=== PATIENT | female | born 1965 | race Caucasian/White ===

== ENCOUNTER 2020-11-04 14:26 | Emergency (ER) | payer SELFPAY ==
[2020-11-04] MEDS ORDERED: fentaNYL 50 MCG/ML SDV IVPUSH ONE ×2 (14:27→18:17)
[2020-11-04] MEDS ORDERED: Lactated Ringers 1,000 ML IV ONE (14:27)
[2020-11-04] MEDS ORDERED: Ondansetron 4 MG/2 ML SDV IV ONE (14:27)
[2020-11-04 15:13] LABS: CHLORIDE,CL 102 mmol/L (98-107); SODIUM,NA 136 mmol/L (136-145)
[2020-11-04 15:14] LABS: ANION GAP 17.4 meq/L (7-15)
--- NOTE | 2020-11-04 15:16 | EDM.PDOC ---
ED HPI GENERAL MEDICAL PROBLEM - General Chief Complaint: Abdominal Pain Stated Complaint: abdominal pain Time Seen by Provider: 11/04/20 14:32 Source of Information: Reports: Patient History Limitations: Reports: No Limitations - History of Present Illness INITIAL COMMENTS - FREE TEXT/NARRATIVE: Patient comes in for lower abdominal/low back pain. Has tried muscle relaxant but no help. Started in right lower right quadrant anteriorly yesterday morning. Slowly started to include right low back/side. Today is now bilateral lower abdominal quadrants and bilateral low back. Nothing makes it specifically better or worse. Cannot get comfortable. No history of similar pain in past. No history of injury. Feels a little tingly both thighs but denies bowel/bladder dysfunction or lower extremity weakness. No UTI complaints. Mild loose stools since yesterday/non-bloody. Some nausea/decreased appetite. No emesis. Denies HEENT/Resp/CV changes. No other reported changes. Abdomen Pain Score (Numeric/FACES): 10 - Related Data Allergies Allergy/AdvReac Type Severity Reaction Status Date / Time amoxicillin Allergy Anaphylactic Verified 11/04/20 15:27 Shock morphine Allergy Hives Verified 11/04/20 18:10 Penicillins Allergy Anaphylactic Verified 11/04/20 15:27 Shock Home Meds: Home Meds . [No Known Home Meds] 11/04/20 [History] Past Medical History Musculoskeletal History: Reports: Other (See Below) (Cyst removed from lumbar spine area.) Social & Family History - Tobacco Use Tobacco Use Status *Q: Current Every Day Tobacco User Packs/Tins Daily: 1 Smoking Cessation Information Provided To Patient: Patient Refused - Caffeine Use Caffeine Use: Reports: Coffee (1 pot a day) - Alcohol Use Alcohol Use History: Yes Total Drinks Per Week Comment: Has about 6 drinks a week Alcohol Use Frequency: Socially - Recreational Drug Use Recreational Drug Use: No Drug Use in Last 12 Months: No ED ROS GENERAL - Review of Systems Review Of Systems: Comprehensive ROS is negative, except as noted in HPI. ED EXAM, GENERAL - Physical Exam Exam: See Below Exam Limited By: No Limitations General Appearance: Alert, Moderate Distress Eye Exam: Bilateral Eye: EOMI, PERRL Ears: Hearing Grossly Normal Nose: No: Nasal Deformity, Nasal Swelling, Nasal Drainage Throat/Mouth: Normal Lips, Normal Voice, No Airway Compromise Head: Atraumatic, Normocephalic Neck: Supple, Non-Tender, Full Range of Motion Respiratory/Chest: No Respiratory Distress, Lungs Clear, Normal Breath Sounds, No Accessory Muscle Use, Chest Non-Tender Cardiovascular: Regular Rate, Rhythm, No Murmur GI/Abdominal: Rebound (RLQ), Tender (all 4 quadrants/worse in RLQ), Abnormal Bowel Sounds (diminished). No: Guarding, Rigid, Hernia, Mass (Female) Exam: No: Cervix Motion Tenderness, Enlarged Uterus, Vaginal Bleeding, Vaginal Discharge Rectal (Female) Exam: Deferred Back Exam: Other (mild tenderness with percussion right low back. Scar over lumbar spine from previous spinal surgery. ) Extremities: Non-Tender, No Pedal Edema, Normal Capillary Refill Neurological: Alert, Oriented, Other (Can't stand straight up due to discomfort. No obvious focal weakness. DTR diminished left patella vs right. ) Psychiatric: Normal Affect, Normal Mood Skin Exam: Warm, Dry, Intact, Normal Color Course - Vital Signs Last Recorded V/S: Last Vital Signs Temp 36.7 C 11/04/20 14:30 Pulse 66 11/04/20 15:15 Resp 18 11/04/20 15:15 BP 122/75 11/04/20 15:15 Pulse Ox 99 11/04/20 15:15 - Orders/Labs/Meds Orders: Active Orders 24 hr Category Date Time Status Peripheral IV Care [RC] . DIRECTED Care 11/04/20 14:27 Active Abdomen Pelvis wo Cont [CT] Stat Exams 11/04/20 15:21 Taken Sodium Chloride 0.9% [Saline Flush] Med 11/04/20 14:27 Active 10 ml FLUSH ASDIRECTED PRN Peripheral IV Insertion Adult [OM.PC] Stat Oth 11/04/20 14:26 Ordered Medication Orders Sodium Chloride (Sodium Chloride 0.9% 10 Ml Syringe) 10 ml FLUSH ASDIRECTED PRN PRN Reason: Keep Vein Open Last Admin: 11/04/20 17:11 Dose: 10 ml Documented by: ANASTASIA Labs: Laboratory Tests 11/04/20 11/04/20 11/04/20 Range/Units 14:52 14:52 14:52 WBC 10.5 H (4.0-10.2) K/uL RBC 4.59 (3.77-5.09) M/uL Hgb 14.4 (11.7-15.5) g/dL Hct 41.9 (34.0-46.0) % MCV 91.3 (84.0-98.0) fL MCH 31.4 (28.2-33.3) pg MCHC 34.4 (31.7-36.0) g/dL RDW 12.7 (11.2-14.1) % Plt Count 263 (150-350) K/uL Neut % (Auto) 73.7 (45.0-80.0) % Lymph % (Auto) 16.6 (10.0-50.0) % [place] % (Auto) 6.8 (2.0-14.0) % Eos % (Auto) 2.4 (0.0-5.0) % Baso % (Auto) 0.5 (0.0-2.0) % Neut # (Auto) 7.72 H (1.40-7.00) K/uL Lymph # (Auto) 1.74 (0.50-3.50) K/uL [place] # (Auto) 0.71 (0.00-1.00) K/uL Eos # (Auto) 0.25 (0.00-0.50) K/uL Baso # (Auto) 0.05 (0.00-0.20) K/uL Sodium 136 (136-145) mmol/L Potassium 4.0 (3.5-5.1) mmol/L Chloride 102 (98-107) mmol/L Carbon Dioxide 20.6 L (21.0-32.0) mmol/L Anion Gap 17.4 H (7-15) meq/L BUN 12 (7-18) mg/dL Creatinine 0.72 (0.51-1.17) mg/dL Est Cr Clr Drug Dosing TNP Estimated GFR (MDRD) > 60 mL/min Glucose 92 (70-99) mg/dL Lactic Acid 1.3 (0.4-2.0) mmol/L Calcium 9.0 (8.5-10.1) mg/dL Total Bilirubin 0.4 (0.2-1.0) mg/dL AST 46 H (15-37) U/L ALT 71 (12-78) U/L Alkaline Phosphatase 101 (46-116) IU/L C-Reactive Protein < 0.2 (<=0.9) mg/dL Total Protein 7.4 (6.4-8.2) g/dL Albumin 3.9 (3.4-5.0) g/dL Lipase 380 (73-393) U/L Specimen Type Urine Color Urine Appearance Urine pH (5.0-9.0) Ur Specific [place] (1.005-1.030) Urine Protein (NEGATIVE) mg/dL Urine Glucose (UA) (NEGATIVE) mg/dL Urine Ketones (NEGATIVE) mg/dL Urine Occult Blood (NEGATIVE) Urine Nitrite (NEGATIVE) Urine Bilirubin (NEGATIVE) Urine Urobilinogen (0.2-1.0) E.U./dL Ur Leukocyte Esterase (NEGATIVE) Urine HCG, Qual Urine Opiates Screen (NEGATIVE) Ur Buprenorphine Scrn (NEGATIVE) Ur Oxycodone Screen (NEGATIVE) Ur EDDP (Meth Metab) (NEGATIVE) Ur Barbiturates Screen (NEGATIVE) Ur Tricyclics Screen (NEGATIVE) Ur Amphetamine Screen (NEGATIVE) U Methamphetamines Scrn (NEGATIVE) Urine MDMA Screen (NEGATIVE) U Benzodiazepines Scrn (NEGATIVE) U Cocaine Metab Screen (NEGATIVE) U Marijuana (THC) Screen (NEGATIVE) 11/04/20 11/04/20 11/04/20 Range/Units 16:03 16:03 16:34 WBC (4.0-10.2) K/uL RBC (3.77-5.09) M/uL Hgb (11.7-15.5) g/dL Hct (34.0-46.0) % MCV (84.0-98.0) fL MCH (28.2-33.3) pg MCHC (31.7-36.0) g/dL RDW (11.2-14.1) % Plt Count (150-350) K/uL Neut % (Auto) (45.0-80.0) % Lymph % (Auto) (10.0-50.0) % [place] % (Auto) (2.0-14.0) % Eos % (Auto) (0.0-5.0) % Baso % (Auto) (0.0-2.0) % Neut # (Auto) (1.40-7.00) K/uL Lymph # (Auto) (0.50-3.50) K/uL [place] # (Auto) (0.00-1.00) K/uL Eos # (Auto) (0.00-0.50) K/uL Baso # (Auto) (0.00-0.20) K/uL Sodium (136-145) mmol/L Potassium (3.5-5.1) mmol/L Chloride (98-107) mmol/L Carbon Dioxide (21.0-32.0) mmol/L Anion Gap (7-15) meq/L BUN (7-18) mg/dL Creatinine (0.51-1.17) mg/dL Est Cr Clr Drug Dosing Estimated GFR (MDRD) mL/min Glucose (70-99) mg/dL Lactic Acid (0.4-2.0) mmol/L Calcium (8.5-10.1) mg/dL Total Bilirubin (0.2-1.0) mg/dL AST (15-37) U/L ALT (12-78) U/L Alkaline Phosphatase (46-116) IU/L C-Reactive Protein (<=0.9) mg/dL Total Protein (6.4-8.2) g/dL Albumin (3.4-5.0) g/dL Lipase (73-393) U/L Specimen Type Urinvoid Urine Color Other Urine Appearance Clear Urine pH 6.0 (5.0-9.0) Ur Specific [place] <= 1.005 (1.005-1.030) Urine Protein Negative (NEGATIVE) mg/dL Urine Glucose (UA) Negative (NEGATIVE) mg/dL Urine Ketones Negative (NEGATIVE) mg/dL Urine Occult Blood Negative (NEGATIVE) Urine Nitrite Negative (NEGATIVE) Urine Bilirubin Negative (NEGATIVE) Urine Urobilinogen 0.2 (0.2-1.0) E.U./dL Ur Leukocyte Esterase Negative (NEGATIVE) Urine HCG, Qual Negative Urine Opiates Screen Negative (NEGATIVE) Ur Buprenorphine Scrn Negative (NEGATIVE) Ur Oxycodone Screen Negative (NEGATIVE) Ur EDDP (Meth Metab) Negative (NEGATIVE) Ur Barbiturates Screen Negative (NEGATIVE) Ur Tricyclics Screen Negative (NEGATIVE) Ur Amphetamine Screen Negative (NEGATIVE) U Methamphetamines Scrn Negative (NEGATIVE) Urine MDMA Screen Negative (NEGATIVE) U Benzodiazepines Scrn Negative (NEGATIVE) U Cocaine Metab Screen Negative (NEGATIVE) U Marijuana (THC) Screen Negative (NEGATIVE) Meds: Medications Generic Name Dose Route Start Last Admin Trade Name Alex PRN Reason Stop Dose Admin Sodium Chloride 10 ml 11/04/20 14:27 11/04/20 17:11 Sodium Chloride 0.9% 10 Ml Syringe FLUSH 10 ml ASDIRECTED PRN Administration Keep Vein Open Discontinued Medications Generic Name Dose Route Start Last Admin Trade Name Alex PRN Reason Stop Dose Admin Fentanyl 50 mcg 11/04/20 14:27 11/04/20 14:53 Fentanyl 50 Mcg/Ml Sdv IVPUSH 11/04/20 14:28 50 mcg ONETIME ONE Administration Fentanyl 100 mcg 11/04/20 17:02 11/04/20 17:11 Fentanyl 100 Mcg/2 Ml Sdv IVPUSH 11/04/20 17:03 100 mcg ONETIME ONE Administration Fentanyl 50 mcg 11/04/20 18:17 Fentanyl 50 Mcg/Ml Sdv IVPUSH 11/04/20 18:18 ONETIME ONE Hydromorphone HCl 1 mg 11/04/20 15:50 11/04/20 15:56 Hydromorphone 1 Mg/Ml Syringe IVPUSH 11/04/20 15:51 1 mg ONETIME ONE Administration Hydromorphone HCl 1 mg 11/04/20 18:21 Hydromorphone 1 Mg/Ml Syringe IVPUSH 11/04/20 18:22 ONETIME ONE Lactated Ringer's 1,000 mls @ 1,000 mls/hr 11/04/20 14:27 11/04/20 14:53 Ringers, Lactated IV 11/04/20 15:26 1,000 mls/hr .BOLUS ONE Administration Morphine Sulfate 4 mg 11/04/20 16:59 Morphine 4 Mg/Ml Syringe IVPUSH 11/04/20 17:00 ONETIME ONE Ondansetron HCl 4 mg 11/04/20 14:27 11/04/20 14:53 Ondansetron 4 Mg/2 Ml Sdv IV 11/04/20 14:28 4 mg ONETIME ONE Administration - Re-Assessments/Exams Free Text/Narrative Re-Assessment/Exam: 11/04/20 15:22 IV fluid/Fentanyl/labs ordered. Given RLQ pain/rebound a CT of abd/pelvis was ordered. 11/04/20 18:34 Patient's WBC minimally elevated at 10.5 Rest of labs overall unremarkable including UA. AST mildly increased as was anion lisa. CO2 mildly diminished. CT showed no acute changes overall. Bladder distended but patient voided out urine during next void/bladder scan noted minimal urine left within bladder afterwards. Uncertain as to what is causing patient's acute pain. Patient remained in pain and requested additional pain meds approximately every hour during stay. Both Fentanyl and Dilaudid given with temporary improvement noted. Patient allergic to MS. Cannot rule out pain related to patient's previous issue with spinal cyst/no noted changes other than degenerative changes on CT. Cannot rule out pain related to torsed ovary. US unavailable at this time at our facility. Call placed to [facility] ER and patient reviewed with from their ER. Plans for transfer made with him as accepting MD. They will continue patient's evaluation and have US on site. Surgery and MRI services also available if ne eded. Departure - Departure Time of Disposition: 18:40 Disposition: DC/Tfer to Acute Hospital 02 Condition: Good Clinical Impression: Bilateral lower abdominal pain Bilateral low back pain Qualifiers: Chronicity: acute Sciatica presence: without sciatica Qualified Code(s): M54.5 - Low back pain - Discharge Information *PRESCRIPTION DRUG MONITORING PROGRAM REVIEWED*: Not Applicable *COPY OF PRESCRIPTION DRUG MONITORING REPORT IN PATIENT AMAN: Not Applicable Referrals: PCP,None [Primary Care Provider] - Forms: ED Department Discharge Sepsis Event Note (ED) - Focused Exam Vital Signs: Vital Signs Temp Pulse Resp BP Pulse Ox 11/04/20 15:15 66 18 122/75 99 11/04/20 14:45 86 18 121/75 99 11/04/20 14:30 36.7 C 66 19 131/78 100 - My Orders Last 24 Hours: My Active Orders 11/04/20 15:21 Abdomen Pelvis wo Cont [CT] Stat - Assessment/Plan Last 24 Hours: My Active Orders 11/04/20 15:21 Abdomen Pelvis wo Cont [CT] Stat
[2020-11-04] MEDS ORDERED: HYDROmorphone 1 MG/ML Syringe IVPUSH ONE ×2 (15:50→18:21)
[2020-11-04 16:54] LABS: BARBITURATE SCREEN,URINE NEGATIVE (NEGATIVE); BENZODIAZEPINES SCREEN,URINE NEGATIVE (NEGATIVE); EDDP,URINE SCREEN NEGATIVE (NEGATIVE); TCA SCREEN,URINE NEGATIVE (NEGATIVE); THC SCREEN,URINE 50 NG/ML NEGATIVE (NEGATIVE)
[2020-11-04 16:56] LABS: BUPRENORPHINE SCREEN,URINE NEGATIVE (NEGATIVE)
[2020-11-04] MEDS ORDERED: Morphine 4 MG/ML Syringe IVPUSH ONE (16:59)
[2020-11-04] MEDS ORDERED: fentaNYL 100 MCG/2 ML SDV IVPUSH ONE (17:02)
[2020-11-04] MEDS: Sodium Chloride 0.9% 10 ML Syringe FLUSH PRN ×2 (17:11→18:54)
== END 2020-11-04 19:45 ==
LOC: LL.ED 14:26
DX: R10.31 Right lower quadrant pain (principal); R10.32 Left lower quadrant pain; M54.5 Low back pain; Z88.0 Allergy status to penicillin; Z88.5 Allergy status to narcotic agent; Z72.0 Tobacco use
CPT/HCPCS: 36415; 74176; 80053; 80305-QW; 81003; 81025; 83605; 83690; 85025; 86140; 96374; 96375; 96376; 99284; 99285-25; J1170; J2405; J3010; J7120